=== PATIENT | female | born 1960 | race Caucasian/White ===

== ENCOUNTER → 2021-01-26 | Outpatient (CLI) | payer OTHER ==
[~2021-01-26] MED LIST: amlodipine; aspirin; lisinopril; metoprolol; tramadol
[2021-01-29 13:31] VITALS: BP 134/86
== END ==
LOC: LAB 09:45
PROVIDERS: ATTEND Internal Medicine Gastroenterology
DX: Z01.812 Encounter for preprocedural laboratory examination (principal); R13.10 Dysphagia, unspecified; R12 Heartburn; Z20.822 Contact with and (suspected) exposure to COVID-19
CPT/HCPCS: C9803; U0003

== ENCOUNTER → 2021-01-29 | Day surgery (SDC) | payer OTHER ==
[~2021-01-29] MED LIST changes: +GLYCOPYRROLATE 1 MG/5 ML VIAL. ONE; +IPRATRPIUM/ALBUTEROL 0.5/2.5MG 3 ML NEBU. NEB PRN; +IV RINGERS SOLUTION,LACTATED 1,000 ML IV SCH; +LIDOCAINE 2% PF 5 ML VIAL. ONE; +MIDAZOLAM HCL PF 2 MG/2 ML VIAL. IV ONE; +ONDANSETRON PF 4 MG/2 ML VIAL. IV PRN; +PROPOFOL 10,000 MCG/ML (20ML) VIAL IV ONE
[2021-01-29 13:31] VITALS: BP 134/86
--- NOTE | 2021-02-03 10:10 | PATHOLOGY ---
[facility] Accession Number: [id number] . 01 Material submitted: . PART A: gastrointestinal site - ANTRUM GASTRITIS PART B: colon - DESCENDING COLON POLYP #1. Modifiers: descending, 1 PART C: colon - DESCENDING COLON POLYP #2. Modifiers: descending, 2 PART D: colon - TRANSVERSE COLON POLYP BIOPSY X3. Modifiers: transverse . 01 Clinical history: . EGD AND COLONOSCOPY . 02 Diagnosis: A. Gastric biopsies, antrum: - Active chronic gastritis, moderate, with focal mucosal erosion and with Helicobacter organisms identified. . B. Colon biopsies, descending colon polyp #1: - Tubular adenoma. . C. Colon biopsies, descending colon polyp #2: - Tubular adenoma. . D. Colon biopsies, transverse colon polyp biopsy x 3: - Tubular adenomas. - Hyperplastic polyp (1). (JPM:denys; 02/02/2021) [facility] 02/02/2021 1525 Local . 02 Comment: Sections of the gastric antral biopsy show congestion and moderate active chronic inflammation with focal mucosal erosion. A properly controlled immunoperoxidase stain for Helicobacter reveals focally numerous Helicobacter organisms. . Sections of descending colon polyp #1 and descending colon polyp #2 appear similar and reveal tubular adenomas showing no high-grade dysplasia or evidence of malignancy. . Sections of the transverse colon biopsy reveal three segments of tubular adenoma and a segment of hyperplastic polyp. There is no high-grade dysplasia or evidence of malignancy. (JPM:denys; 02/02/2021) . Special stain performed: Immunoperoxidase for Helicobacter on A1. . 02 Electronically signed: . Iglesia Terry MD, Pathologist NPI- [id number] . 01 Gross description: . A. The specimen is received in formalin, labeled "Onelia Acostaa, antrum gastritis" and consists of 2 odell irregular tissues aggregating 0.5 x 0.3 x 0.2 cm submitted in toto in A1. . B. The specimen is received in formalin, labeled "Jenna Acosta, descending colon polyp #1" and consists of 3 odell irregular tissue aggregating 0.9 x 0.4 x 0.3 cm which are submitted in toto in B1. . C. The specimen is received in formalin, labeled "Jenna Acosta, descending colon polyp #2" and consists of a odell irregular tissue measuring 0.4 x 0.3 x 0.2 cm which is admixed submitted material, filtered and submitted in toto in C1. . D. The specimen is received in formalin, labeled "Jenna Acosta, transverse colon biopsy polyp x's 3" and consists of multiple odell irregular tissues aggregating 0.5 x 0.4 x 0.2 cm submitted in toto in D1.([place]; 02/01/2021) DKA/DKA 02/01/2021 [facility] Local . 02 Pathologist provided ICD-10: K29.50, K25.9, D12.4, D12.3, K63.5 . 02 CPT . 713542, 999621, 522623, 600105, [id number] Specimen Comment: A courtesy copy of this report has been sent to [phone] Specimen Comment: Report sent to Specimen Comment: A duplicate report has been generated due to demographic updates. Performed at: 01 [facility] [address], [place], [place] [id number] MD Gallito Washington MD Phone: [phone] Performed at: 02 [facility] [address] [place], [place] [id number] MD Iglesia Terry MD Phone: [phone]
== END | disposition home or self-care (01) ==
LOC: SURG 10:36 → EDUNIT# 11:30
PROVIDERS: ATTEND Internal Medicine Gastroenterology
DX: Z12.11 Encounter for screening for malignant neoplasm of colon (principal); R12 Heartburn; R13.10 Dysphagia, unspecified; K64.8 Other hemorrhoids; D12.4 Benign neoplasm of descending colon; D12.3 Benign neoplasm of transverse colon; K29.50 Unspecified chronic gastritis without bleeding; K25.9 Gastric ulcer, unspecified as acute or chronic, without hemorrhage or perforation; K63.89 Other specified diseases of intestine; K31.89 Other diseases of stomach and duodenum; K21.00 Gastro-esophageal reflux disease with esophagitis, without bleeding; K44.9 Diaphragmatic hernia without obstruction or gangrene; K22.2 Esophageal obstruction; K29.80 Duodenitis without bleeding; K26.9 Duodenal ulcer, unspecified as acute or chronic, without hemorrhage or perforation; I10 Essential (primary) hypertension; Z87.891 Personal history of nicotine dependence; Z79.82 Long term (current) use of aspirin; Z79.899 Other long term (current) drug therapy; Z72.89 Other problems related to lifestyle; Z90.710 Acquired absence of both cervix and uterus; Z98.890 Other specified postprocedural states
CPT/HCPCS: 43239; 45380; 45381; 45385; 88305; 88342; J2001; J2704; J3490; J7120

== ENCOUNTER → 2021-04-20 | Outpatient (CLI) | payer OTHER ==
[2021-01-29 13:31] VITALS: BP 134/86
[~2021-04-20] MED LIST changes: -GLYCOPYRROLATE 1 MG/5 ML VIAL. ONE; -IPRATRPIUM/ALBUTEROL 0.5/2.5MG 3 ML NEBU. NEB PRN; -IV RINGERS SOLUTION,LACTATED 1,000 ML IV SCH; -LIDOCAINE 2% PF 5 ML VIAL. ONE; -MIDAZOLAM HCL PF 2 MG/2 ML VIAL. IV ONE; -ONDANSETRON PF 4 MG/2 ML VIAL. IV PRN; -PROPOFOL 10,000 MCG/ML (20ML) VIAL IV ONE
== END ==
LOC: LAB 09:53
PROVIDERS: ATTEND Internal Medicine Gastroenterology
DX: Z01.812 Encounter for preprocedural laboratory examination (principal); Z20.822 Contact with and (suspected) exposure to COVID-19
CPT/HCPCS: U0003

== ENCOUNTER → 2021-04-23 | Day surgery (SDC) | payer OTHER ==
[~2021-04-23] MED LIST changes: +IPRATRPIUM/ALBUTEROL 0.5/2.5MG 3 ML NEBU. NEB PRN; +IV RINGERS SOLUTION,LACTATED 1,000 ML IV SCH; +LIDOCAINE 2% PF 5 ML VIAL. ONE; +MIDAZOLAM HCL PF 2 MG/2 ML VIAL. IV ONE; +ONDANSETRON PF 4 MG/2 ML VIAL. IV PRN; +PROPOFOL 10,000 MCG/ML (20ML) VIAL IV ONE
[2021-04-23 12:50] VITALS: BP 149/57
--- NOTE | 2021-04-28 16:10 | PATHOLOGY ---
[facility] Accession Number: [id number] . 01 Material submitted: . esophagus - DISTAL ESOPHAGUS BIOPSY. Modifiers: distal . 01 Clinical history: . EGD . 02 Diagnosis: Esophageal biopsy, distal esophagus: - Reflux changes. (JPM:pit; 04/28/2021) [facility] 04/28/2021 0937 Local . 02 Comment: Sections of the distal esophageal biopsy reveal segments of tangentially oriented, hyperplastic squamous esophageal mucosa. There are focal inflammatory cells within the epithelium. The findings are consistent with reflux esophagitis. There is no evidence of Maciel's change, dysplasia, or malignancy. (JPM:pit; 04/28/2021) . 02 Electronically signed: . Iglesia Terry MD, Pathologist NPI- [id number] . 01 Gross description: . The specimen is received in formalin, labeled "Griffinmyers, Jenna, distal esophagus BX" and consists of a odell irregular tissue measuring 0.3 x 0.2 x 0.1 cm which is filtered and submitted in toto in A1.([facility]; 04/27/2021) DKA/DKA 04/27/2021 1139 Local . 02 Pathologist provided ICD-10: K21.00 . 02 CPT . 444979 Specimen Comment: A courtesy copy of this report has been sent to [phone] Specimen Comment: [phone] Specimen Comment: Report sent to / DR HURLEY Performed at: 01 [facility] [address], [place], [place] [id number] MD Gallito Washington MD Phone: [phone] Performed at: 02 [facility] [address] [place], [place] [id number] MD Iglesia Terry MD Phone: [phone]
== END | disposition home or self-care (01) ==
LOC: SURG 10:14
PROVIDERS: ATTEND Internal Medicine Gastroenterology
DX: R10.13 Epigastric pain (principal); K21.00 Gastro-esophageal reflux disease with esophagitis, without bleeding; K29.50 Unspecified chronic gastritis without bleeding; K22.70 Barrett's esophagus without dysplasia; K31.89 Other diseases of stomach and duodenum; I10 Essential (primary) hypertension; F41.9 Anxiety disorder, unspecified; F17.210 Nicotine dependence, cigarettes, uncomplicated; Z79.82 Long term (current) use of aspirin; Z79.899 Other long term (current) drug therapy; Z98.890 Other specified postprocedural states
CPT/HCPCS: 43239; J2001; J2704; J7120